=== PATIENT | male | born 1955 | race Caucasian/White ===

== ENCOUNTER → 2017-09-04 | Outpatient (CLI) | payer OTHER, MEDICARE ==
[~2017-09-04] MED LIST: ASPI325T17 PO; DULO30CA2 PO; FURO20TA3 PO; LEVO125T5 PO; METO25TA35 PO; OXYC15TA60 PO; OXYC1TAB9 PO; POTA10TA11 PO; PRAV40TA2 PO; RASP100C PO
== END | disposition home or self-care (01) ==
LOC: CVU 12:07
PROVIDERS: ATTEND Internal Medicine Cardiovascular Disease
DX: I50.22 Chronic systolic (congestive) heart failure (principal); I73.9 Peripheral vascular disease, unspecified; Z95.0 Presence of cardiac pacemaker
CPT/HCPCS: 93306

== ENCOUNTER 2018-05-08 06:15 | Day surgery (SDC) | payer OTHER, MEDICARE ==
[2018-05-06 11:09] VITALS: BP 112/68
[2018-05-06 11:15] LABS: BASOPHILS # (AUTO) 0.05 x10^3/uL (0-0.1); BASOPHILS % (AUTO) 1 % (0-1); EOSINOPHILS # (AUTO) 0.09 x10^3/uL (0-0.4); EOSINOPHILS % (AUTO) 2 % (1-7); LYMPHOCYTES # (AUTO) 1.96 x10^3/uL (1-3.4); LYMPHOCYTES % (AUTO) 35 % (22-44); MD NO; MEAN CORPUSCULAR HEMOGLOBIN 30.6 pg (27.5-34.5); MEAN PLATELET VOLUME 8.7 fL (7.4-10.4); MONOCYTES # (AUTO) 0.38 x10^3/uL (0.2-0.8); MONOCYTES % (AUTO) 7 % (2-9); NEUTROPHILS # (AUTO) 3.06 x10^3/uL (1.8-6.8); NEUTROPHILS % (AUTO) 55 % (42-75); PLATELET COUNT 234 x10^3/uL (130-400); RED CELL DISTRIBUTION WIDTH 15.4 % (9.4-14.8)
[2018-05-06 12:11] LABS: CHLORIDE 109 mmol/L (98-107)
[2018-05-06 12:18] LABS: ALANINE AMINOTRANSFERASE 32 U/L (12-78); ALKALINE PHOSPHATASE 128 U/L (45-117); ANION GAP 7 mmol/L (5-15); BILIRUBIN,TOTAL 0.7 mg/dL (0.2-1.0); CALCIUM 8.9 mg/dL (8.5-10.1); CREATININE 1.28 mg/dL (0.7-1.3); TOTAL PROTEIN 7.6 g/dL (6.4-8.2)
[~2018-05-08] VITALS: Ht 180.3 cm; Wt 115.5 kg
[~2018-05-08 06:15] MED LIST changes: +ATOR20TA9 PO; +CHOL2000 PO; +LISI2.5T PO; +LOSA100T7 PO; +METO25TA91 PO; +OXYC-432 PO; -OXYC1TAB9 PO; +TADA5TAB2 PO
[2018-05-08] MEDS ORDERED: SODIUM CHLORIDE 0.9% 1,000 ML IV SCH (06:29)
[2018-05-08] MEDS ORDERED: CEFAZOLIN PMX 1GM/50ML 50 ML IVPB ONE (06:30)
[2018-05-08] MEDS ORDERED: MIDAZOLAM 1 MG/ML, 2ML ONE ×2 (08:00→08:40)
[2018-05-08] MEDS ORDERED: CEFAZOLIN PMX 1GM/50ML 50 ML ONE (08:00)
[2018-05-08] MEDS ORDERED: FENTANYL PF 100 MCG/2ML ONE (08:00)
[2018-05-08] MEDS ORDERED: CEFAZOLIN 1,000 MG ONE (08:00)
[2018-05-08] MEDS ORDERED: LIDOCAINE/PF 1%, 30ML ONE (08:04)
[2018-05-08] MEDS ORDERED: CEPH-368 PO (09:55)
[2018-05-08] MEDS ORDERED: ACETAMINOPHEN PO SCH (10:00)
[2018-05-08] MEDS ORDERED: OXYCODONE HCL PO SCH (10:00)
[2018-05-08] MEDS ORDERED: [UNRECOGNIZED DRUG - OTHER] PO SCH (10:00)
[2018-05-08] MEDS ORDERED: TEMPLATE NON-FORMULARY MED. (Tadalafil** (Cialis**) 5 MG) PO SCH (10:00)
[2018-05-08] MEDS ORDERED: ACETAMINOPHEN 325 MG TABLET PO PRN (10:00)
[2018-05-08] MEDS ORDERED: HOLD MEDICATION MC PRN (10:00)
[2018-05-08] MEDS ORDERED: SODIUM CHLORIDE FLUSH 10ML SYR IVF SCH (21:00)
[2018-05-08] MEDS ORDERED: TEMPLATE NON-FORMULARY MED. (Atorvastatin Calcium** 20 MG) PO SCH (21:00)
[2018-05-09] MEDS ORDERED: METOPROLOL SUCCINATE 25 MG TAB.ER.24H PO SCH (09:00)
[2018-05-09] MEDS ORDERED: TEMPLATE NON-FORMULARY MED. (Losartan Potassium** 100 MG) PO SCH (09:00)
[2018-05-09] MEDS ORDERED: FUROSEMIDE 20 MG TABLET PO SCH (09:00)
[2018-05-09] MEDS ORDERED: TEMPLATE NON-FORMULARY MED. (Cholecalciferol (Vitamin D3)** (Vitamin D-3**) 2,000 UNIT) PO SCH (09:00)
[2018-05-09] MEDS ORDERED: LEVOTHYROXINE 125 MCG TABLET PO SCH (09:00)
[2018-05-09] MEDS ORDERED: TEMPLATE NON-FORMULARY MED. (Lisinopril** 2.5 MG) PO SCH (09:00)
== END 2018-05-08 10:38 | disposition home or self-care (01) ==
LOC: CACL 06:15
PROVIDERS: ATTEND Internal Medicine Cardiovascular Disease
DX: Z45.010 Encounter for checking and testing of cardiac pacemaker pulse generator [battery] (principal); I11.0 Hypertensive heart disease with heart failure; I50.22 Chronic systolic (congestive) heart failure; I42.8 Other cardiomyopathies; E78.2 Mixed hyperlipidemia; I49.5 Sick sinus syndrome; G47.30 Sleep apnea, unspecified; J96.11 Chronic respiratory failure with hypoxia; Z95.0 Presence of cardiac pacemaker; N40.0 Benign prostatic hyperplasia without lower urinary tract symptoms
CPT/HCPCS: 33228; 36415; 80053; 85025; 99156; C1785; J0690; J2250; J3010; J3490